=== PATIENT | female | born 1995 ===

== ENCOUNTER 2021-11-26 09:32 | Outpatient (CLI) | payer SELFPAY ==
[2021-11-26] MEDS ORDERED: LACTATED RINGERS 1,000 ML IV SCH (11:00)
[2021-11-26] MEDS ORDERED: PANTOPRAZOLE 40 MG INJ IV ONE (11:00)
[2021-11-26] MEDS ORDERED: ONDANSETRON 4 MG/2 ML INJ IM ONE (12:00)
[2021-11-26 12:12] LABS: Hematocrit 36.8 % (30.3-42.9); Hemoglobin 12.3 gm/dl (10.1-14.3); Mean Corpuscular HGB Conc 33 % (30-34); Mean Corpuscular Volume 88 fl (79-97); Platelet Count 240 K/mm3 (140-440); Red Blood Count 4.19 M/mm3 (3.65-5.03); Red Cell Distribution Width 14.9 % (13.2-15.2)
[2021-11-26 12:19] LABS: Bacteria,Urine 1+ /HPF (Negative); Bilirubin,Urine SM (Negative); Blood,Urine NEG (Negative); Color,Urine Amber (Yellow); Mucus,Urine 3+ /HPF
[2021-11-26 12:23] LABS: Ictotest,Urine Positive (Negative)
[2021-11-26 12:36] LABS: Alanine Aminotransferase 99 units/L (7-56); Albumin 3.7 g/dL (3.9-5); Blood Urea Nitrogen 9 mg/dL (7-17); Calcium 9.1 mg/dL (8.4-10.2); Hemolysis Index 2
[2021-11-26 12:51] LABS: BUN/Creatinine Ratio 30
[2021-11-26] MEDS ORDERED: SODIUM CHLORIDE 0.9% 1000 ML IV SOLN IV ONE (14:15)
--- NOTE | 2021-11-26 15:00 | History and Physical Report ---
History of Present Illness Date of examination: 11/26/21 Date of admission: 11/26/21 Chief complaint: epigastric and right flank pain History of present illness: at 31wks c/w U/S done today. care at one of the clinics covered by [employer] and no records available. Pt c/o epigastric pain and nausea and vomiting for the past 4days. pt denies fever and chills. pt also admits to frequent urination. Pt admits to movement, denies LOF or vag bl eed or feeling contractions, just pelvic pressure. guest relations agent used with the #[id number] Past History Past Medical History: other (GERD and H. Pylori positive in the past, denies gastric ulcer) Past Surgical History: no surgical history Social history: no significant social history - Obstetrical History Expected Date of Delivery: 01/23/22 Actual Gestation: 31 Week(s) 6 Day(s) : 2 Para: 1 Hx # Term Pregnancies: 1 Number of Living Children: 1 Medications and Allergies Allergies Allergy/AdvReac Type Severity Reaction Status Date / Time No Known Allergies Allergy Unverified 11/26/21 10:41 Active Meds: Active Medications Ceftriaxone Sodium (Ceftriaxone 1 Gm Inj) 1 gm IM Q24H TREVON; Protocol Stop: 11/28/21 15:01 Lactated Ringer's (Lactated Ringers) 1,000 mls @ 999 mls/hr IV DIRECT TREVON Last Admin: 11/26/21 11:54 Dose: 999 mls/hr Sodium Chloride (Nacl 0.9% 1000 Ml) 1,000 mls @ 150 mls/hr IV DIRECT TREVON Lidocaine (Lidocaine-Mpf (1%) 10 Mg/1 Ml Vial 5 Ml) 2 ml INFILTRATI ONCE ONE Stop: 11/26/21 14:52 Pantoprazole Sodium (Pantoprazole 40 Mg Inj) 40 mg IV QDAY TREVON Review of Systems All systems: negative (epigastric pain and right flank pain with urinary frequency) - Vital Signs Vital signs: Vital Signs Pulse BP 83 110/56 11/26/21 10:04 11/26/21 10:04 Temp Pulse Resp BP Pulse Ox 98.5 F 84 16 110/56 100 11/26/21 10:26 11/26/21 14:54 11/26/21 10:11/26/21 10:26 11/26/21 14:54 - Physical Exam Breasts: Positive: deferred Cardiovascular: Regular rate Abdomen: Positive: soft Genitourinary (Female): Positive: normal external genitalia Vulva: both: normal Uterus: Positive: enlarged (non-tender, gravid) Extremities: Positive: other (right CVAT) - Obstetrical FHR: category 1 Uterine Contraction Monitor Mode: Palpation Results Result Diagrams: 11/26/21 11:40 11/26/21 11:40 Abnormal lab results 11/26/21 11/26/21 11/26/21 Range/Units 11:40 11:40 11:40 WBC 12.8 H (4.5-11.0) K/mm3 Sodium 133 L (137-145) mmol/L Carbon Dioxide 18 L (22-30) mmol/L Creatinine 0.3 L (0.6-1.2) mg/dL Glucose 109 H (65-100) mg/dL AST 42 H (5-40) units/L ALT 99 H (7-56) units/L Alkaline Phosphatase 162 H (35-129) units/L Albumin 3.7 L (3.9-5) g/dL U Epithel Cells (Auto) 43.0 H (0-13.0) /HPF All other labs normal. Assessment and Plan with epigastric pain and H/O H. Pyloric infection/GERD; also suspect pyelo 1. Will consult [facility] 2. Ceftriaxone 1gm daily 3 send urine culture 4. U/S Gallbladder, and renal u/s 5. Consult med team for history of h.pylori and evaluate and treat same after gall bladder u/s obtained 6. Zofran prn nausea
[2021-11-26] MEDS ORDERED: LIDOCAINE-MPF (1%) 10 MG/1 ML VIAL 5 ML INFILTRATI SCH (16:00)
[2021-11-26] MEDS: SODIUM CHLORIDE 0.9% 1000 ML 1,000 ML IV SCH (17:00)
[2021-11-26] MEDS ORDERED: NalbUPHINE 10 MG/1 ML INJ IV PRN (17:44)
[2021-11-26] MEDS ORDERED: ONDANSETRON 4 MG/2 ML INJ IV PRN (17:49)
--- NOTE | 2021-11-26 18:02 | Ultrasound Report ---
US OB BPP wo non-stress, US OB follow up INDICATION / CLINICAL INFORMATION: labor. COMPARISON: None available. FINDINGS: Single live intrauterine . measurements correspond to a gestational age of 3 1 weeks and 4 days. Clinical gestational age of 31 weeks and 6 days. Estimated weight by ultras ound is 1712 g. 19%. BREATHING MOVEMENT = 2 GROSS BODY MOVEMENT = 2 TONE = 2 QUALITATIVE AMNIOTIC FLUID VOLUME = 2 TOTAL BIOPHYSICAL SCORE = 8/8 AMNIOTIC FLUID INDEX (cm) = 11.3 PRESENTATION: Cephalic. HEART RATE (beats per minute): 131 Additional findings: Fundal placenta is free of the os. IMPRESSION: 1. Single live intrauterine with ultrasound age of 31 weeks and 4 days. Estimated ayden ght of 1712 g. (19th percentile). 2. biophysical profile = 8/8 3. JAY measures 11.3 cm, within normal limits. Signer Name: Dwayne Howe MD Signed: 11/26/2021 5:58 PM Workstation Name: [id number]
--- NOTE | 2021-11-26 18:24 | Ultrasound Report ---
US renal BILAT, US abdomen limited INDICATION / CLINICAL INFORMATION: right flank pain, preg suspect pyelo. COMPARISON: None available. FINDINGS: PANCREAS: No significant abnormality. ABDOMINAL AORTA: No significant abnormality. IVC: No significant abnormality. LIVER: No significant abnormality. PORTAL VEIN: Normal hepatopedal blood flow in the main portal vein. GALLBLADDER: Multiple stones are present in the gallbladder. The gallbladder wall is partially contra cted with borderline thickened, measuring 4 mm. No significant pericholecystic fluid. BILE DUCTS: Common bile duct measures 3 mm. No significant abnormality. KIDNEYS: -- Right: Right kidney measures 10.4 cm. There is mild right hydronephrosis. Renal parenchyma is pres erved. -- Left: Left kidney measures 11.6 cm. No significant hydronephrosis. BLADDER: No significant abnormality. FREE FLUID: None. ADDITIONAL FINDINGS: None. IMPRESSION: 1. Partially contracted gallbladder with cholelithiasis. The gallbladder wall is borderline thickened , which may be related to incomplete distention. No significant pericholecystic fluid or other sonogr aphic findings of cholecystitis. 2. Mild right hydronephrosis, nonspecific but may be related to maternal hydronephrosis in . Signer Name: Dwayne Howe MD Signed: 11/26/2021 6:19 PM Workstation Name: [id number]
[2021-11-26] MEDS ORDERED: cefTRIAXone/NS 1 GM/50 ML 1 GM/50 ML BAG IV SCH (19:30)
--- NOTE | 2021-11-27 00:28 | Event Note ---
Date: 11/27/21 lab results reviewed with cholelithiasis and with continue IV hydration and antibiotics and consult both gen surg and [facility] in the am. Pt to get prn nubain if severe. May do NST every 8hrs. Normal saline with low sodium seen and repeat electrolytes in the am on 11/27/21
[2021-11-27] MEDS: SODIUM CHLORIDE 0.9% 1000 ML 1,000 ML IV SCH ×2 (01:10→09:43)
--- NOTE | 2021-11-27 06:26 | Progress Note ---
Subjective - Subjective Date of service: 11/27/21 Interval history: Stable at bedside on AM rounds no abdominal pain, no nausea or vomiting afebrile NST reassuring for gestational age ABD: soft, NT, no rebound or guarding, negative Bryson's sign WBC 12.8 AST 42 ALT 99 plan for today: repeat CBC and CMP home on oral antibiotics and Gen Surg consult as outpatient. Ayaka Aguilar MD Objective - Vital Signs Vital Signs: Vital Signs - 12hr 11/26/21 11/26/21 11/26/21 18:27 18:29 18:34 Temperature Pulse Rate 86 84 86 Respiratory Rate Blood Pressure 111/56 Blood Pressure [Right] O2 Sat by Pulse 100 100 Oximetry 11/26/21 11/26/21 11/26/21 18:39 18:44 18:49 Temperature Pulse Rate 83 88 86 Respiratory Rate Blood Pressure Blood Pressure [Right] O2 Sat by Pulse 100 100 100 Oximetry 11/26/21 11/26/21 11/26/21 18:53 18:54 18:59 Temperature Pulse Rate 90 84 88 Respiratory Rate Blood Pressure Blood Pressure [Right] O2 Sat by Pulse 91 100 100 Oximetry 11/26/21 11/26/21 11/26/21 19:04 19:09 19:14 Temperature Pulse Rate 90 88 86 Respiratory Rate Blood Pressure Blood Pressure [Right] O2 Sat by Pulse 100 100 100 Oximetry 11/26/21 11/26/21 11/26/21 19:19 19:24 19:27 Temperature Pulse Rate 86 98 H 94 H Respiratory Rate Blood Pressure Blood Pressure [Right] O2 Sat by Pulse 100 100 84 Oximetry 11/26/21 11/26/21 11/26/21 20:04 20:09 20:11 Temperature Pulse Rate 87 90 86 Respiratory Rate Blood Pressure 105/57 Blood Pressure [Right] O2 Sat by Pulse 100 100 Oximetry 11/26/21 11/26/21 11/26/21 20:12 20:14 20:19 Temperature 98.7 F Pulse Rate 82 80 86 Respiratory 18 Rate Blood Pressure Blood Pressure 105/57 [Right] O2 Sat by Pulse 100 100 100 Oximetry 11/26/21 11/26/21 11/26/21 20:24 20:29 20:34 Temperature Pulse Rate 86 85 94 H Respiratory Rate Blood Pressure Blood Pressure [Right] O2 Sat by Pulse 100 100 100 Oximetry 11/26/21 11/26/21 11/26/21 20:39 20:44 20:49 Temperature Pulse Rate 85 88 93 H Respiratory Rate Blood Pressure Blood Pressure [Right] O2 Sat by Pulse 100 100 100 Oximetry 11/26/21 11/26/21 11/26/21 20:54 20:59 21:04 Temperature Pulse Rate 88 93 H 95 H Respiratory Rate Blood Pressure Blood Pressure [Right] O2 Sat by Pulse 100 99 100 Oximetry 11/26/21 11/26/21 11/26/21 21:09 21:14 21:19 Temperature Pulse Rate 96 H 102 H 85 Respiratory Rate Blood Pressure Blood Pressure [Right] O2 Sat by Pulse 100 100 100 Oximetry 11/26/21 11/26/21 11/26/21 21:24 21:29 21:34 Temperature Pulse Rate 83 83 82 Respiratory Rate Blood Pressure Blood Pressure [Right] O2 Sat by Pulse 100 100 100 Oximetry 11/26/21 11/26/21 11/26/21 21:39 21:44 21:49 Temperature Pulse Rate 92 H 87 87 Respiratory Rate Blood Pressure Blood Pressure [Right] O2 Sat by Pulse 100 100 100 Oximetry 11/26/21 11/26/21 11/26/21 21:54 21:59 22:04 Temperature Pulse Rate 87 92 H 87 Respiratory Rate Blood Pressure Blood Pressure [Right] O2 Sat by Pulse 100 100 100 Oximetry 11/26/21 11/26/21 11/26/21 22:09 22:14 22:19 Temperature Pulse Rate 95 H 92 H 98 H Respiratory Rate Blood Pressure Blood Pressure [Right] O2 Sat by Pulse 99 100 100 Oximetry 11/26/21 11/26/21 11/26/21 22:24 22:29 22:34 Temperature Pulse Rate 97 H 94 H 94 H Respiratory Rate Blood Pressure Blood Pressure [Right] O2 Sat by Pulse 100 100 99 Oximetry 11/26/21 11/26/21 11/26/21 22:39 22:44 22:49 Temperature Pulse Rate 92 H 94 H 85 Respiratory Rate Blood Pressure Blood Pressure [Right] O2 Sat by Pulse 98 99 98 Oximetry 11/26/21 11/26/21 11/26/21 23:16 23:17 23:21 Temperature Pulse Rate 92 H 85 88 Respiratory Rate Blood Pressure Blood Pressure [Right] O2 Sat by Pulse 100 88 98 Oximetry 11/26/21 11/26/2122 23:26 23:31 23:36 Temperature Pulse Rate 86 86 91 H Respiratory Rate Blood Pressure Blood Pressure [Right] O2 Sat by Pulse 99 98 97 Oximetry 11/26/21 11/26/21 11/26/21 23:41 23:46 23:51 Temperature Pulse Rate 86 84 88 Respiratory Rate Blood Pressure Blood Pressure [Right] O2 Sat by Pulse 99 98 99 Oximetry 11/26/21 11/27/21 11/27/21 23:56 00:01 00:06 Temperature Pulse Rate 76 87 77 Respiratory Rate Blood Pressure Blood Pressure [Right] O2 Sat by Pulse 99 99 100 Oximetry 11/27/21 11/27/21 11/27/21 00:11 00:16 00:21 Temperature Pulse Rate 92 H 78 74 Respiratory Rate Blood Pressure Blood Pressure [Right] O2 Sat by Pulse 100 98 99 Oximetry 11/27/21 11/27/21 11/27/21 00:26 00:31 00:36 Temperature Pulse Rate 79 81 81 Respiratory Rate Blood Pressure Blood Pressure [Right] O2 Sat by Pulse 99 98 98 Oximetry 11/27/21 11/27/21 11/27/21 00:41 00:46 00:51 Temperature Pulse Rate 79 89 72 Respiratory Rate Blood Pressure Blood Pressure [Right] O2 Sat by Pulse 98 97 98 Oximetry 11/27/21 11/27/21 11/27/21 00:56 01:01 01:06 Temperature Pulse Rate 81 74 91 H Respiratory Rate Blood Pressure Blood Pressure [Right] O2 Sat by Pulse 99 99 99 Oximetry 11/27/21 11/27/21 11/27/21 01:11 01:16 01:21 Temperature Pulse Rate 80 77 76 Respiratory Rate Blood Pressure Blood Pressure [Right] O2 Sat by Pulse 98 98 99 Oximetry 11/27/21 11/27/21 11/27/21 01:26 01:31 01:36 Temperature Pulse Rate 75 76 79 Respiratory Rate Blood Pressure Blood Pressure [Right] O2 Sat by Pulse 99 98 98 Oximetry 11/27/21 11/27/21 11/27/21 01:41 01:46 01:51 Temperature Pulse Rate 78 80 79 Respiratory Rate Blood Pressure Blood Pressure [Right] O2 Sat by Pulse 98 98 97 Oximetry 11/27/21 11/27/21 11/27/21 01:56 02:01 02:06 Temperature Pulse Rate 89 84 77 Respiratory Rate Blood Pressure Blood Pressure [Right] O2 Sat by Pulse 97 97 97 Oximetry 11/27/21 11/27/21 11/27/21 02:11 02:16 02:21 Temperature Pulse Rate 101 H 81 79 Respiratory Rate Blood Pressure Blood Pressure [Right] O2 Sat by Pulse 97 97 97 Oximetry 11/27/21 11/27/21 11/27/21 02:26 02:31 02:36 Temperature Pulse Rate 79 79 80 Respiratory Rate Blood Pressure Blood Pressure [Right] O2 Sat by Pulse 97 98 97 Oximetry 11/27/21 11/27/21 11/27/21 02:41 02:46 02:51 Temperature Pulse Rate 81 90 76 Respiratory Rate Blood Pressure Blood Pressure [Right] O2 Sat by Pulse 96 97 99 Oximetry 11/27/21 11/27/21 11/27/21 02:56 03:01 03:06 Temperature Pulse Rate 93 H 78 79 Respiratory Rate Blood Pressure Blood Pressure [Right] O2 Sat by Pulse 98 98 98 Oximetry 11/27/21 11/27/21 11/27/21 03:11 03:16 03:21 Temperature Pulse Rate 82 81 86 Respiratory Rate Blood Pressure Blood Pressure [Right] O2 Sat by Pulse 99 98 98 Oximetry 11/27/21 11/27/21 11/27/21 03:26 03:31 03:36 Temperature Pulse Rate 80 84 83 Respiratory Rate Blood Pressure Blood Pressure [Right] O2 Sat by Pulse 98 99 100 Oximetry 11/27/21 11/27/21 11/27/21 03:37 03:41 03:46 Temperature Pulse Rate 92 H 77 78 Respiratory Rate Blood Pressure Blood Pressure [Right] O2 Sat by Pulse 93 98 98 Oximetry 11/27/21 11/27/21 11/27/21 03:51 03:56 04:01 Temperature Pulse Rate 79 81 81 Respiratory Rate Blood Pressure Blood Pressure [Right] O2 Sat by Pulse 99 99 98 Oximetry 11/27/21 11/27/21 11/27/21 04:06 04:11 04:16 Temperature Pulse Rate 82 79 78 Respiratory Rate Blood Pressure Blood Pressure [Right] O2 Sat by Pulse 100 100 98 Oximetry 11/27/21 11/27/21 11/27/21 04:21 04:26 04:31 Temperature Pulse Rate 82 81 82 Respiratory Rate Blood Pressure Blood Pressure [Right] O2 Sat by Pulse 98 98 98 Oximetry 11/27/21 11/27/21 11/27/21 04:36 04:41 04:46 Temperature Pulse Rate 84 85 80 Respiratory Rate Blood Pressure Blood Pressure [Right] O2 Sat by Pulse 98 97 98 Oximetry 11/27/21 11/27/21 11/27/21 04:51 04:56 05:01 Temperature Pulse Rate 82 80 86 Respiratory Rate Blood Pressure Blood Pressure [Right] O2 Sat by Pulse 98 98 97 Oximetry 11/27/21 11/27/21 11/27/21 05:03 05:06 05:12 Temperature Pulse Rate 91 H 90 87 Respiratory Rate Blood Pressure 107/68 Blood Pressure [Right] O2 Sat by Pulse 97 98 Oximetry 11/27/21 11/27/21 11/27/21 05:16 05:22 05:25 Temperature Pulse Rate 92 H 80 85 Respiratory Rate Blood Pressure Blood Pressure [Right] O2 Sat by Pulse 97 98 89 Oximetry 11/27/21 11/27/21 11/27/21 05:26 05:31 05:36 Temperature Pulse Rate 83 75 78 Respiratory Rate Blood Pressure Blood Pressure [Right] O2 Sat by Pulse 100 99 98 Oximetry 11/27/21 11/27/21 11/27/21 05:41 05:46 05:52 Temperature Pulse Rate 74 78 78 Respiratory Rate Blood Pressure Blood Pressure [Right] O2 Sat by Pulse 98 99 100 Oximetry 11/27/21 11/27/21 11/27/21 05:56 06:01 06:06 Temperature Pulse Rate 76 80 77 Respiratory Rate Blood Pressure Blood Pressure [Right] O2 Sat by Pulse 100 99 99 Oximetry 11/27/21 11/27/21 11/27/21 06:11 06:16 06:21 Temperature Pulse Rate 87 80 77 Respiratory Rate Blood Pressure Blood Pressure [Right] O2 Sat by Pulse 98 98 97 Oximetry - Labs Labs: Abnormal Labs 11/26/21 11/26/21 11/26/21 11:40 11:40 11:40 WBC 12.8 H Sodium 133 L Carbon Dioxide 18 L Creatinine 0.3 L Glucose 109 H AST 42 H ALT 99 H Alkaline Phosphatase 162 H Albumin 3.7 L U Epithel Cells (Auto) 43.0 H Laboratory Results - last 24 hr 11/26/21 11/26/21 11/26/21 11:40 11:40 11:40 WBC 12.8 H RBC 4.19 Hgb 12.3 Hct 36.8 MCV 88 MCH 29 MCHC 33 RDW 14.9 Plt Count 240 Sodium 133 L Potassium 4.0 Chloride 101.1 Carbon Dioxide 18 L Anion Gap 18 BUN 9 Creatinine 0.3 L Estimated GFR > 60 BUN/Creatinine Ratio 30 Glucose 109 H Calcium 9.1 Total Bilirubin 1.10 AST 42 H ALT 99 H Alkaline Phosphatase 162 H Total Protein 7.5 Albumin 3.7 L Albumin/Globulin Ratio 1.0 Urine Color Fartun Urine Turbidity Slightly-cloudy Urine pH 6.0 Ur Specific Jackson 1.030 Urine Protein 100 mg/dl Urine Glucose (UA) 50 Urine Ketones 80 Urine Blood Neg Urine Nitrite Neg Urine Bilirubin Sm Urine Ictotest Positive Urine Urobilinogen 2.0 Ur Leukocyte Esterase Neg Urine WBC (Auto) 6.0 Urine RBC (Auto) 5.0 U Epithel Cells (Auto) 43.0 H Urine Bacteria (Auto) 1+ Urine Mucus 3+ Hepatitis C Antibody 11/26/21 20:19 WBC RBC Hgb Hct MCV MCH MCHC RDW Plt Count Sodium Potassium Chloride Carbon Dioxide Anion Gap BUN Creatinine Estimated GFR BUN/Creatinine Ratio Glucose Calcium Total Bilirubin AST ALT Alkaline Phosphatase Total Protein Albumin Albumin/Globulin Ratio Urine Color Urine Turbidity Urine pH Ur Specific Jackson Urine Protein Urine Glucose (UA) Urine Ketones Urine Blood Urine Nitrite Urine Bilirubin Urine Ictotest Urine Urobilinogen Ur Leukocyte Esterase Urine WBC (Auto) Urine RBC (Auto) U Epithel Cells (Auto) Urine Bacteria (Auto) Urine Mucus Hepatitis C Antibody Non-reactive
[2021-11-27 08:04] VITALS: BP 121/69
--- NOTE | 2021-11-27 08:37 | Discharge Summary ---
Providers - Providers Date of discharge: 11/27/21 Attending physician: ISMAEL CORONA 11/27/21 00:43 Consult to Physician [CONS] Routine Comment: Consulting Provider: CINDY JO Physician Instructions: Reason For Exam: cholelithiasis symptomatic and preg 32.0wks 11/27/21 00:51 Consult to Physician [CONS] Routine Comment: Consulting Provider: [facility] Physician Instructions: Reason For Exam: gallstones, H/O H.Pylori +, early pyelo, Primary care physician: ISMAEL CORONA Hospitalization Reason for admission: other (RUQ pain) Discharge diagnosis: other (cholelithasis) Condition at discharge: Stable Disposition: 01 HOME / SELF CARE / HOMELESS Plan - Provider Discharge Summary Activity: no sex for 6 weeks Diet: routine Instructions: routine Additional instructions: [] Smoking cessation referral if applicable(refer to patient education folder for contact #) [] Refer to [facility]'s [facility] Booklet Call your doctor immediately for: * Fever > 100.5 * Heavy vaginal bleeding ( >1 pad per hour) * Severe persistent headache * Shortness of breath * Reddened, hot, painful area to leg or breast * Drainage or odor from incision. * Keep incision clean and dry at all times and follow doctor's instructions regarding bathing/showering - Follow up plan Follow up: ISMAEL CORONA MD [Primary Care Provider] - 7 Days
[2021-11-27 09:57] LABS: Basophils % (Auto) 0.2 % (0.0-1.8); Eosinophils # (Auto) 0.1 K/mm3 (0.0-0.4); Eosinophils % (Auto) 0.6 % (0.0-4.3); Hemoglobin 10.1 gm/dl (10.1-14.3); Lymphocytes # (Auto) 1.6 K/mm3 (1.2-5.4); Mean Corpuscular HGB Conc 33 % (30-34); Mean Corpuscular Volume 89 fl (79-97); Monocytes # (Auto) 0.5 K/mm3 (0.0-0.8); Monocytes % (Auto) 4.8 % (0.0-7.3); Platelet Count 192 K/mm3 (140-440); Red Blood Count 3.47 M/mm3 (3.65-5.03); Red Cell Distribution Width 15.3 % (13.2-15.2)
[2021-11-27] MEDS ORDERED: PANTOPRAZOLE 40 MG INJ IV SCH (10:00)
[2021-11-27 10:20] LABS: Alanine Aminotransferase 68 units/L (7-56); Albumin 3.2 g/dL (3.9-5); Blood Urea Nitrogen 5 mg/dL (7-17); Calcium 8.2 mg/dL (8.4-10.2); Hemolysis Index 0
[2021-11-27 10:22] LABS: BUN/Creatinine Ratio 17
--- NOTE | 2021-11-27 13:27 | Event Note ---
Date: 11/27/21 Saw consult in computer for patient who is 32 weeks for evaluation for symptomatic cholelithiasis. Patient is discharged at this time. Since she is in third trimester surgery would not be recommended at this time for symptomatic cholelithiasis. due to high risk of labor unless patient found to be septic or unstable with the cause due to the gallbladder. Patient is free to follow-up as an outpatient for evaluation for cholecystectomy after delivery.
== END 2021-11-27 11:40 | disposition home or self-care (01) ==
LOC: TRG 09:32 → LD 09:32 → APU 09:34 → TRG 11-27 11:40
PROVIDERS: ATTEND Obstetrics & Gynecology
DX: K92.89 Other specified diseases of the digestive system (principal); K80.20 Calculus of gallbladder without cholecystitis without obstruction; O99.891 Other specified diseases and conditions complicating pregnancy; N13.30 Unspecified hydronephrosis; K21.9 Gastro-esophageal reflux disease without esophagitis; O62.9 Abnormality of forces of labor, unspecified; Z3A.31 31 weeks gestation of pregnancy
CPT/HCPCS: 36415; 76705; 76770; 76816; 76819; 80053; 81001; 85025; 85027; 86707; 86803; 96361; 96365; 96366; 96367; 96372; 96375; C9113; J0696; J2405; J7030; J7120

== ENCOUNTER 2022-01-19 17:19 | Inpatient (IN) | payer SELFPAY ==
[2022-01-19] MEDS ORDERED: OXYTOCIN DRIP 30,000 MILLIUNITS/500 ML BAG IV ONE (17:54)
[2022-01-19] MEDS ORDERED: LACTATED RINGERS 1,000 ML ONE (17:54)
[2022-01-19] MEDS ORDERED: OXYTOCIN 10 UNIT/1 ML INJ ONE (17:55)
[2022-01-19] MEDS ORDERED: miSOPROStol 200 MCG TAB ONE (18:13)
--- NOTE | 2022-01-19 18:45 | History and Physical Report ---
History of Present Illness Date of examination: 01/19/22 Date of admission: 01/19/2022 Chief complaint: 27 y/o presents to Labor and delivery in active labor. care at [facility]. No records available History of present illness: SEE CC Past History Past Medical History: no pertinent history - Obstetrical History Expected Date of Delivery: 01/23/22 Actual Gestation: 39 Week(s) 3 Day(s) : 2 Para: 1 Number of Living Children: 1 Medications and Allergies Allergies Allergy/AdvReac Type Severity Reaction Status Date / Time No Known Allergies Allergy Unverified 11/26/21 10:41 Home Medications Medication Instructions Recorded Confirmed Last Taken Type cephALEXin [Keflex] 500 mg PO Q12HR 7 Days #14 cap 11/27/21 Unknown Rx metroNIDAZOLE [Flagyl] 500 mg PO Q12HR 7 Days #14 tab 11/27/21 Unknown Rx Review of Systems All systems: negative - Vital Signs Vital signs: Vital Signs Pulse Pulse Ox 79 100 01/19/22 17:40 01/19/22 17:40 Temp Pulse Resp BP Pulse Ox 72 147/82 99 01/19/22 18:37 01/19/22 17:42 01/19/22 18:37 - Physical Exam Breasts: Positive: deferred Cardiovascular: Regular rate Lungs: Positive: Clear to auscultation Abdomen: Positive: soft Genitourinary (Female): Positive: normal external genitalia Vulva: both: normal Uterus: Positive: enlarged - Obstetrical FHR: category 1 Uterine Contraction Monitor Mode: External Cervical Dilatation: 10 (arom - meconium) Cervical Effacement Percentage: 100 station: +3 Uterine Contraction Pattern: Regular Uterine Contraction Intensity: Strong/Firm Results All other labs normal. Assessment and Plan A: 39 + weeks in active labor P: Expect
[2022-01-19] MEDS ORDERED: LIDOCAINE (2%) 20 MG/1 ML VIAL 20 ML MDV INFILTRATI ONE (18:53)
[2022-01-19] MEDS ORDERED: OXYTOCIN 10 UNIT/1 ML INJ IM PRN (18:53)
[2022-01-19] MEDS ORDERED: LOPERAMIDE 2 MG CAP PO PRN (18:53)
[2022-01-19] MEDS ORDERED: TERBUTALINE 1 MG/1 ML INJ SUB-Q PRN (18:53)
[2022-01-19] MEDS ORDERED: ePHEDrine SULFATE 50 MG/1 ML INJ IV PRN (18:53)
[2022-01-19] MEDS ORDERED: CARBOPROST TROMETHAMINE 250 MCG/1 ML INJ IM PRN (18:53)
[2022-01-19] MEDS ORDERED: miSOPROStol 200 MCG TAB PR PRN (18:53)
[2022-01-19] MEDS ORDERED: METHYLERGONOVINE MALEATE 0.2 MG/ML VIAL IM PRN (18:53)
[2022-01-19] MEDS ORDERED: BUTORPHANOL 2 MG/1 ML INJ IV PRN ×2 (18:53)
[2022-01-19] MEDS ORDERED: ACETAMINOPHEN 325 MG TAB PO PRN ×2 (18:53→18:57)
[2022-01-19] MEDS ORDERED: MINERAL OIL 30 ML ORAL LIQD PO PRN (18:53)
--- NOTE | 2022-01-19 18:53 | Procedure Note ---
OB Delivery Note - Delivery Date of Delivery: 01/19/22 Surgeon: ALEXANDRA SOTO Estimated blood loss: other (250cc) - Vaginal Delivery presentation: vertex Delivery position: OA Intrapartum events: meconium Delivery induction: none Delivery augmentation: rupture of membranes Delivery monitor: external FHT, external uterine Route of delivery: Delivery placenta: spontaneous Delivery cord: 3 umbilical vessels Episiotomy: none Delivery laceration: 2nd degree Delivery repair: vicryl Anesthesia: local Delivery comments: After arom a of a viable female on 01/19/2022 @ 1806 over 2nd degree laceration. Double nuchal cord reduced loose. Placenta delivered 3VCI. 8/9. Laceration repaired with 2-0 vicryl under local anesthesia. QBL 250cc. - A at 1 minute: 8 at 5 minutes: 9 Gender: Female
[2022-01-19] MEDS ORDERED: LANOLIN/ZINC/DIMETHICONE (LANSINOH) 7 GM TP PRN (18:57)
[2022-01-19] MEDS ORDERED: WITCH HAZEL/ GLYCERIN PAD TP PRN (18:57)
[2022-01-19] MEDS ORDERED: PROMETHAZINE 25 MG RECT SUPP PR PRN (18:57)
[2022-01-19] MEDS ORDERED: oxyCODONE /ACETAMINOPHEN 5-325MG TAB PO PRN (18:57)
[2022-01-19] MEDS ORDERED: PROMETHAZINE 25 MG TAB PO PRN (18:57)
[2022-01-19] MEDS ORDERED: OXYTOCIN DRIP 30 UNITS/500 ML BAG IV SCH ×2 (19:00)
[2022-01-19] MEDS ORDERED: LACTATED RINGERS 1,000 ML IV SCH (19:00)
[2022-01-19] MEDS: IBUPROFEN 800 MG TAB PO SCH (19:56)
[2022-01-20 00:50] LABS: Hematocrit 29.7 % (30.3-42.9); Hemoglobin 9.9 gm/dl (10.1-14.3); Mean Corpuscular HGB Conc 33 % (30-34); Mean Corpuscular Volume 89 fl (79-97); Platelet Count 210 K/mm3 (140-440); Red Blood Count 3.33 M/mm3 (3.65-5.03); Red Cell Distribution Width 16.3 % (13.2-15.2)
[2022-01-20 07:52] LABS: Hematocrit 28.2 % (30.3-42.9); Hemoglobin 9.3 gm/dl (10.1-14.3)
--- NOTE | 2022-01-20 08:16 | Progress Note ---
Assessment and Plan A: PPD # 1 - stable P: Plan discharge home in am Discharge instructions given Subjective - Subjective Date of service: 01/20/22 Principal diagnosis: PPD # 1 Interval history: SEE CC Patient reports: appetite normal : doing well Objective - Vital Signs Latest vital signs: Vital Signs Temp Pulse Resp BP BP Pulse Ox 01/20/22 05:13 98.3 F 76 18 91/53 98 01/19/22 23:00 98.9 F 82 20 93/57 98 01/19/22 22:25 88 101/64 01/19/22 22:24 95 H 98 01/19/22 22:22 82 98/59 01/19/22 22:19 91 H 99 01/19/22 22:14 78 99 01/19/22 22:09 77 99 01/19/22 22:07 80 114/70 01/19/22 22:04 87 97 01/19/22 21:59 88 98 01/19/22 21:54 87 98 01/19/22 21:53 81 118/70 01/19/22 21:49 73 99 01/19/22 21:44 81 99 01/19/22 21:39 76 99 01/19/22 21:38 75 144/67 01/19/22 21:34 77 99 01/19/22 21:29 82 99 01/19/22 21:24 79 99 01/19/22 21:23 81 108/59 01/19/22 21:19 87 98 01/19/22 21:14 86 99 01/19/22 21:09 76 99 01/19/22 21:06 88 88/55 01/19/22 21:05 80 116/69 01/19/22 20:42 82 98 01/19/22 20:37 93 H 98 01/19/22 20:32 86 98 01/19/22 20:27 90 98 01/19/22 20:22 85 100 01/19/22 20:17 92 H 98 01/19/22 20:12 95 H 99 01/19/22 20:07 91 H 99 01/19/22 20:02 89 97 01/19/22 19:57 96 H 99 01/19/22 19:52 78 98 01/19/22 19:47 84 98 01/19/22 19:42 88 98 01/19/22 19:37 73 98 07/22/22 19:32 72 99 01/19/22 19:27 89 98 01/19/22 19:22 88 99 01/19/22 19:17 78 99 01/19/22 19:12 79 99 01/19/22 19:07 76 100 01/19/22 19:05 72 113/69 01/19/22 19:02 68 100 01/19/22 18:57 73 100 01/19/22 18:52 78 99 01/19/22 18:47 79 99 01/19/22 18:42 71 100 01/19/22 18:37 72 99 01/19/22 18:32 64 100 01/19/22 18:27 69 99 01/19/22 18:22 67 99 01/19/22 18:17 68 99 01/19/22 18:12 72 99 01/19/22 18:07 68 100 01/19/22 18:02 83 99 01/19/22 17:50 67 100 01/19/22 17:45 65 100 01/19/22 17:42 73 147/82 01/19/22 17:40 79 100 Intake and Output 01/19/22 01/20/22 01/20/22 22:59 06:59 14:59 Intake Total 120 Output Total 300 Balance -180 Intake: Oral 120 Output: Urine 300 Void 300 Other: Total, Intake Amount 120 Total, Output Amount 300 # Voids Void 1 Weight 206 lb Estimated Blood Loss 250 - Exam Breasts: Present: deferred Cardiovascular: Present: Regular rate Lungs: Present: Clear to auscultation Abdomen: Present: normal appearance Vulva: both: normal Uterus: Present: fundal height below umbilicus Deep Tendon Reflex Grade: Normal +2 - Labs Labs: Abnormal lab results 01/20/22 01/20/22 Range/Units 00:25 07:09 WBC 15.2 H (4.5-11.0) K/mm3 RBC 3.33 L (3.65-5.03) M/mm3 Hgb 9.9 L 9.3 L (10.1-14.3) gm/dl Hct 29.7 L 28.2 L (30.3-42.9) % RDW 16.3 H (13.2-15.2) %
--- NOTE | 2022-01-20 08:18 | Discharge Summary ---
Providers - Providers Date of Admission: 01/19/22 18:53 Date of discharge: 01/21/22 Attending physician: ISMAEL CORONA Primary care physician: ISMAEL CORONA Hospitalization Reason for admission: active labor Delivery: Laceration: 2nd degree Discharge diagnosis: IUP at term delivered baby: female Condition at discharge: Good Disposition: 01 HOME / SELF CARE / HOMELESS Plan - Provider Discharge Summary Activity: routine, no sex for 6 weeks, no strenuous exercise Diet: routine Instructions: routine Additional instructions: [] Smoking cessation referral if applicable(refer to patient education folder for contact #) [] Refer to [facility]'s [facility] Booklet Call your doctor immediately for: * Fever > 100.5 * Heavy vaginal bleeding ( >1 pad per hour) * Severe persistent headache * Shortness of breath * Reddened, hot, painful area to leg or breast * Drainage or odor from incision. * Keep incision clean and dry at all times and follow doctor's instructions regarding bathing/showering - Follow up plan Follow up: ISMAEL CORONA MD [Primary Care Provider] - 6 Weeks
[2022-01-20] MEDS: IBUPROFEN 800 MG TAB PO SCH ×2 (10:24→21:28)
[2022-01-20] MEDS ORDERED: MEASLES, MUMPS & RUBELLA 12,500 UNIT/0.5 ML VACCINE SUB-Q ONE (22:00)
[2022-01-21] MEDS: IBUPROFEN 800 MG TAB PO SCH ×2 (01:08→06:43)
[2022-01-21 10:45] VITALS: BP 101/56
== END 2022-01-21 10:30 | disposition home or self-care (01) | DRG 807 ==
LOC: TRG 17:19 → APU 17:20 → LD 17:59 → TRG 19:02 → OB 23:21
PROVIDERS: ADMIT Obstetrics & Gynecology; ATTEND Obstetrics & Gynecology
PROC: 10E0XZZ Delivery of Products of Conception, External Approach (ICD-10-PCS; principal; 2022-01-19)
PROC: 0KQM0ZZ Repair Perineum Muscle, Open Approach (ICD-10-PCS; 2022-01-19)
PROC: 10907ZC Drainage of Amniotic Fluid, Therapeutic from Products of Conception, Via Natural or Artificial Opening (ICD-10-PCS; 2022-01-19)
DX: O77.0 Labor and delivery complicated by meconium in amniotic fluid (principal); Z37.0 Single live birth; Z20.822 Contact with and (suspected) exposure to COVID-19; O70.1 Second degree perineal laceration during delivery; Z3A.37 37 weeks gestation of pregnancy; O69.81X0 Labor and delivery complicated by cord around neck, without compression, not applicable or unspecified
CPT/HCPCS: 36415; 85014; 85018; 85027; 90707; G0378; J3490; U0003